=== PATIENT | female | born 1950 | race Caucasian/White ===

== ENCOUNTER 2019-10-25 12:34 | Emergency (ER) | payer BC, SELFPAY ==
[2019-10-25] VITALS (18 sets, daily range): BP systolic 150–175; BP diastolic 67–76; PULSE 56–80; RESP 14–22; O2SAT 97–100
--- NOTE | 2019-10-25 12:52 | DI.CT.S_ITS ---
PROCEDURE: CT HEAD/BRAIN WO CON INDICATIONS: lightheaded, dizzy TECHNIQUE: Noncontrast 4.5 mm thick angled axial sections acquired from the foramen magnum to the vertex, with coronal and sagittal reformats. For radiation dose reduction, the following was used: automated exposure control, adjustment of mA and/or kV according to patient size. COMPARISON: None. FINDINGS: Image quality: Excellent. CSF spaces: Basal cisterns are patent. No extra-axial fluid collections. The ventricles are symmetric in size and shape. Brain: No intracranial bleeds or masses. There is cerebral volume loss for age, with resultant ventricular and sulcal prominence. There are periventricular and deep white matter chronic small vessel ischemic changes. There is intracranial internal carotid artery atherosclerosis. Skull and face: Calvarium and visualized facial bones appear intact, without suspicious lesions. Sinuses: Visualized sinuses and mastoids are clear. IMPRESSION: No acute intracranial abnormality. Dictated by: Susan Laws M.D. on 10/25/2019 at 12:20 Approved by: Susan Laws M.D. on 10/25/2019 at 12:21
--- NOTE | 2019-10-25 13:07 | DI.RAD.S_ITS ---
PROCEDURE: XR ACUTE ABDOMEN SERIES INDICATIONS: nausea TECHNIQUE: One view chest and two views of the abdomen were acquired. COMPARISON: None. FINDINGS: Surgical changes and devices: Cholecystectomy clips. Surgical clips project over the central abdomen and left upper quadrant. Chest: Lungs are clear. Heart size is normal. No pleural effusions. No pneumoperitoneum. Abdomen: Bowel gas pattern is normal. No suspicious calcifications. Visualized solid organ contours appear normal. Bones: No suspicious bony lesions. IMPRESSION: No acute process. Dictated by: Susan Laws M.D. on 10/25/2019 at 12:36 Approved by: Susan Laws M.D. on 10/25/2019 at 12:37
[2019-10-25 13:10] LABS: Add Manual Diff / Slide Review NO; Basophils Absolute Auto 100 /uL (0-100); Basophils Percent Auto 1.2 % (0-2); Eosinophils Absolute Auto 100 /uL (0-450); Eosinophils Percent Auto 1.7 % (2-4); Hematocrit 40.4 % (36-46); Hemoglobin 13.4 g/dL (12.0-16.0); Lymphocytes Absolute Auto 1400 /uL (1100-4500); Lymphocytes Percent Auto 24.8 % (25-40); Mean Corpuscular HGB Conc 33.2 % (30-36); Mean Corpuscular Volume 96.1 fL (80-100); Monocytes Absolute Auto 600 /uL (0-900); Monocytes Percent Auto 10.5 % (3-14); Neutrophils Absolute Auto 3400 /uL (1500-7000); Neutrophils Percent Auto 61.8 % (50-75); Platelet Count 231 X10^3/uL (150-400); Red Cell Distribution Width 13.5 % (11.6-14.8); White Blood Cell Count 5.5 X10^3/uL (4.5-11.0)
[2019-10-25 13:17] LABS: Prothrombin Time 11.6 SECONDS (10.1-12.7)
[2019-10-25 13:20] LABS: PTT Partial Thromboplastin Tim 34 SECONDS (26.4-36.2)
[2019-10-25 13:24] LABS: Alanine Aminotransferase 39 IU/L (<35); Albumin 4.3 g/dL (3.5-5.0); Albumin Globulin Ratio 1.7 (1.0-2.8); Alkaline Phosphatase 66 U/L (38-126); Aspartate Aminotransferase 36 IU/L (14-36); BUN Creatinine Ratio 32.3 (6-22); Bilirubin Total 0.4 mg/dL (0.2-1.3); Blood Urea Nitrogen 21 mg/dL (7-17); Carbon Dioxide 26 mmol/L (22-32); Chloride 104 mmol/L (98-107); Creatine Kinase 46 U/L (30-135); Estimated Glomerular Filt Rate > 60.0 mL/min (>60); Ethanol (ETOH) < 10 mg/dL; Globulin 2.6 g/dL (1.7-4.1); Glucose 131 mg/dL (80-110); HEMOLYSIS < 15 (0-50); Magnesium 1.7 mg/dL (1.6-2.3); Potassium 4.3 mmol/L (3.4-5.1); Sodium 134 mmol/L (137-145); Total Protein 6.9 g/dL (6.3-8.2)
[2019-10-25] MEDS: ONDANSETRON 4 MG/2 ML INJ IV (13:25)
[2019-10-25] MEDS: SODIUM CHLORIDE 0.9% 1,000 ML 1000 ML IV ×2 (13:25→14:44)
--- NOTE | 2019-10-25 13:26 | PC.NURSE ---
Pts told us that lately she has been more forgetful.
[2019-10-25 13:36] LABS: NT-proBNP (BNP-Adult 18+) 116 pg/mL (<125); Troponin I < 0.012 ng/mL (0.01-0.034)
--- NOTE | 2019-10-25 13:44 | ED.NEUROSD ---
HPI - Neuro Symptoms/Deficit <BANDAR Faulkner - Last Filed: 10/25/19 20:56> General Chief Complaint: Neuro Symptoms/Deficit Stated Complaint: Woozy/ Nausea Time Seen by Provider: 10/25/19 12:43 Source: patient Mode of arrival: Ambulatory Limitations: no limitations History of Present Illness HPI Narrative: The patient is a 69-year-old female former smoker with history of gastric sleeve and cholecystectomy who presents with her for chief complaint of feeling woozy since she woke up this morning. She feels generally very woozy, like she is ?going to fall over. She denies any spinning sensations. She denies any chest pain or shortness of breath. She complains of nausea, no vomiting. She states she has never felt this way before, was concerned about her blood sugar being off. She denies any abdominal pain. She denies any blurred vision, visual changes slurred speech or confusion. Her notes that she has been having memory issues for several months at this point. She does note that she had a few good cocktails last night, denies any urinary symptoms such as dysuria urgency or frequency. [place] he is mountain biking and they are camping. She denies any palpitations, swelling of her extremities. On Anticoagulants: No Related Data Previous Rx's Medication Instructions Recorded meclizine 25 mg PO TID PRN #20 tab 10/25/19 Allergies Allergy/AdvReac Type Severity Reaction Status Date / Time latex Allergy Mild Redness of Verified 10/25/19 12:46 Skin adhesive AdvReac Intermediate Redness of Verified 10/25/19 12:46 Skin Review of Systems <BANDAR Faulkner - Last Filed: 10/25/19 20:56> Review of Systems Narrative: GENERAL: See HPI HEENT: Denies sinus pain, ear pain, sore throat, difficulty swallowing, dizziness. RESPIRATORY: Denies dyspnea, cough, wheezing, hemoptysis, sputum. CARDIOVASCULAR: See HPI GASTROINTESTINAL: Denies nausea, vomiting, abdominal pain, diarrhea, constipation, melena. : Denies dysuria, frequency, incontinence, hematuria, urinary retention. MUSCULOSKELETAL: denies weakness, joint pain, or bony pain SKIN: Denies rash, skin lesions, or other NEUROLOGIC: See HPI PSYCHIATRIC: No concerning psychosocial issues. 12 point review of systems is negative except for those stated above Patient History <SERJIO Faulkner - Last Filed: 10/25/19 20:56> Social History Smoking Status: Former smoker Smoking Status: Former smoker alcohol intake frequency: 0-2 drinks per day Substance Use Type: does not use Exam <SERJIO Faulkner - Last Filed: 10/25/19 20:56> Narrative Exam Narrative: GENERAL: This is a well-nourished, well-developed patient, in no acute distress HEAD: Atraumatic. Normocephalic. No temporal or scalp tenderness. EYES: Pupils equal round and reactive. Extraocular motions intact. No scleral icterus. No injection or drainage. ENT: Nose without bleeding, purulent drainage or septal hematoma. Throat without erythema, tonsillar hypertrophy or exudate. Uvula midline. Airway patent. Bilateral TMs pearly robles. NECK: Trachea midline. No JVD or lymphadenopathy. Supple, nontender, no meningeal signs. CARDIOVASCULAR: Regular rate and rhythm RESPIRATORY: Clear to auscultation. Breath sounds equal bilaterally. No wheezes, rales, or rhonchi. No cough. No increased respiratory effort. No accessory muscle use. GASTROINTESTINAL: Abdomen soft, non-tender, nondistended. No hepato-splenomegaly, or palpable masses. No guarding. EXTREMITIES: No clubbing, cyanosis, or edema. No joint tenderness, effusion, or edema noted. BACK: Nontender without deformity or crepitance. No flank tenderness. NEURO: AOx3. Steady gait. NIH of 0. No ataxia. Strength is equal upper and lower extremities bilaterally. SKIN: No rash or erythema. Initial Vital Signs Initial Vital Signs: Vital Signs Pulse Rate 70 10/25/19 12:41 Respiratory Rate 14 10/25/19 12:41 Blood Pressure 150/68 H 10/25/19 12:41 Pulse Oximetry 100 10/25/19 12:41 <Curtis Avila MD - Last Filed: 10/31/19 07:21> Initial Vital Signs Initial Vital Signs: Vital Signs Pulse Rate 70 10/25/19 12:41 Respiratory Rate 14 10/25/19 12:41 Blood Pressure 150/68 H 10/25/19 12:41 Pulse Oximetry 100 10/25/19 12:41 Scores <BANDAR Faulkner - Last Filed: 10/25/19 20:56> GCS [place] coma scale eye opening: Spontaneous [place] coma scale verbal response: Orientated [place] coma scale motor response: [place] commands [place] coma scale total score: 15 NIH Stroke Scale Level of Conciousness: Alert, keenly responsive Ask month/age: Answers both questions correctly. Open/close eyes, close hand: Performs both tasks correctly Best gaze horizontal: Normal Visual jiang: No visual loss Facial palsy: Normal symetrical movement Left arm drift: No drift for full 10 sec Right arm drift: No drift for full 10 sec Left leg drift: No drift for full 10 sec Right leg drift: No drift for full 10 sec Limb ataxia: Absent Sensory on face/arms/legs: Normal, no sensory loss Best language: No aphasia, normal Dysarthria: Normal Extinction or inattention: No abnormality Total NIH Stroke scale score: 0 Course <BRYANT Faulkner- - Last Filed: 10/25/19 20:56> Orders Ordered: Discontinued Medications Sodium Chloride (Normal Saline 0.9%) 1,000 mls @ 1,000 mls/hr IV BOLUS PRN PRN Reason: Fluid replacement Last Infusion: 10/25/19 14:34 Dose: 0 mls/hr Documented by: Admin: 10/25/19 13:25 Dose: 1,000 mls/hr Documented by: REYMUNDO Sodium Chloride (Normal Saline 0.9%) 1,000 mls @ 1,000 mls/hr IV BOLUS ONE Stop: 10/25/19 15:35 Last Infusion: 10/25/19 16:43 Dose: 0 mls/hr Documented by: Admin: 10/25/19 14:44 Dose: 1,000 mls/hr Documented by: REYMUNDO Meclizine HCl (Antivert) 50 mg PO NOW ONE Stop: 10/25/19 16:23 Last Admin: 10/25/19 16:40 Dose: 50 mg Documented by: JERSON Ondansetron HCl (Zofran) 4 mg IV NOW ONE Stop: 10/25/19 12:53 Last Admin: 10/25/19 13:25 Dose: 4 mg Documented by: REYMUNDO Vital Signs Vital signs: Vital Signs - 8 hr 10/25/19 14:04 10/25/19 14:30 10/25/19 14:31 Pulse Rate 58 L 57 L 58 L Pulse Rate [Orthostatic Lying] Pulse Rate [Orthostatic Sitting] Pulse Rate [Orthostatic Standing] Respiratory Rate 20 20 18 Blood Pressure 159/71 H Blood Pressure [Orthostatic Lying] Blood Pressure [Orthostatic Sitting] Blood Pressure [Orthostatic Standing] Pulse Oximetry 99 100 99 10/25/19 15:19 10/25/19 15:30 10/25/19 16:00 Pulse Rate 80 63 58 L Pulse Rate [Orthostatic Lying] Pulse Rate [Orthostatic Sitting] Pulse Rate [Orthostatic Standing] Respiratory Rate 17 16 Blood Pressure Blood Pressure [Orthostatic Lying] Blood Pressure [Orthostatic Sitting] Blood Pressure [Orthostatic Standing] Pulse Oximetry 99 100 10/25/19 16:01 10/25/19 16:03 10/25/19 16:05 Pulse Rate 58 L 61 65 Pulse Rate [Orthostatic Lying] Pulse Rate [Orthostatic Sitting] Pulse Rate [Orthostatic Standing] Respiratory Rate 21 19 16 Blood Pressure 155/69 H 168/67 H 175/76 H Blood Pressure [Orthostatic Lying] Blood Pressure [Orthostatic Sitting] Blood Pressure [Orthostatic Standing] Pulse Oximetry 100 100 100 10/25/19 16:07 10/25/19 16:30 10/25/19 17:00 Pulse Rate 60 62 Pulse Rate [Orthostatic Lying] 58 L Pulse Rate [Orthostatic Sitting] 60 Pulse Rate [Orthostatic Standing] 64 Respiratory Rate 19 22 Blood Pressure Blood Pressure [Orthostatic Lying] 155/69 H Blood Pressure [Orthostatic Sitting] 168/67 H Blood Pressure [Orthostatic Standing] 175/76 H Pulse Oximetry 98 100 10/25/19 17:13 10/25/19 17:30 10/25/19 17:31 Pulse Rate 67 58 L 56 L Pulse Rate [Orthostatic Lying] Pulse Rate [Orthostatic Sitting] Pulse Rate [Orthostatic Standing] Respiratory Rate 16 14 18 Blood Pressure 169/72 H 168/72 H Blood Pressure [Orthostatic Lying] Blood Pressure [Orthostatic Sitting] Blood Pressure [Orthostatic Standing] Pulse Oximetry 98 99 99 10/25/19 18:00 10/25/19 18:30 Pulse Rate 62 57 L Pulse Rate [Orthostatic Lying] Pulse Rate [Orthostatic Sitting] Pulse Rate [Orthostatic Standing] Respiratory Rate 15 17 Blood Pressure 160/70 H 165/70 H Blood Pressure [Orthostatic Lying] Blood Pressure [Orthostatic Sitting] Blood Pressure [Orthostatic Standing] Pulse Oximetry 97 99 <Curtis Avila MD - Last Filed: 10/31/19 07:21> Orders Ordered: Discontinued Medications Sodium Chloride (Normal Saline 0.9%) 1,000 mls @ 1,000 mls/hr IV BOLUS PRN PRN Reason: Fluid replacement Last Infusion: 10/25/19 14:34 Dose: 0 mls/hr Documented by: Admin: 10/25/19 13:25 Dose: 1,000 mls/hr Documented by: REYMUNDO Sodium Chloride (Normal Saline 0.9%) 1,000 mls @ 1,000 mls/hr IV BOLUS ONE Stop: 10/25/19 15:35 Last Infusion: 10/25/19 16:43 Dose: 0 mls/hr Documented by: Admin: 10/25/19 14:44 Dose: 1,000 mls/hr Documented by: REYMUNDO Meclizine HCl (Antivert) 50 mg PO NOW ONE Stop: 10/25/19 16:23 Last Admin: 10/25/19 16:40 Dose: 50 mg Documented by: JERSON Ondansetron HCl (Zofran) 4 mg IV NOW ONE Stop: 10/25/19 12:53 Last Admin: 10/25/19 13:25 Dose: 4 mg Documented by: REYMUNDO Vital Signs Vital signs: Vital Signs - 8 hr 10/25/19 14:04 10/25/19 14:30 10/25/19 14:31 Pulse Rate 58 L 57 L 58 L Pulse Rate [Orthostatic Lying] Pulse Rate [Orthostatic Sitting] Pulse Rate [Orthostatic Standing] Respiratory Rate 20 20 18 Blood Pressure 159/71 H Blood Pressure [Orthostatic Lying] Blood Pressure [Orthostatic Sitting] Blood Pressure [Orthostatic Standing] Pulse Oximetry 99 100 99 10/25/19 15:19 10/25/19 15:30 10/25/19 16:00 Pulse Rate 80 63 58 L Pulse Rate [Orthostatic Lying] Pulse Rate [Orthostatic Sitting] Pulse Rate [Orthostatic Standing] Respiratory Rate 17 16 Blood Pressure Blood Pressure [Orthostatic Lying] Blood Pressure [Orthostatic Sitting] Blood Pressure [Orthostatic Standing] Pulse Oximetry 99 100 07/26/20 16:01 10/25/19 16:03 10/25/19 16:05 Pulse Rate 58 L 61 65 Pulse Rate [Orthostatic Lying] Pulse Rate [Orthostatic Sitting] Pulse Rate [Orthostatic Standing] Respiratory Rate 21 19 16 Blood Pressure 155/69 H 168/67 H 175/76 H Blood Pressure [Orthostatic Lying] Blood Pressure [Orthostatic Sitting] Blood Pressure [Orthostatic Standing] Pulse Oximetry 100 100 100 10/25/19 16:07 10/25/19 16:30 10/25/19 17:00 Pulse Rate 60 62 Pulse Rate [Orthostatic Lying] 58 L Pulse Rate [Orthostatic Sitting] 60 Pulse Rate [Orthostatic Standing] 64 Respiratory Rate 19 22 Blood Pressure Blood Pressure [Orthostatic Lying] 155/69 H Blood Pressure [Orthostatic Sitting] 168/67 H Blood Pressure [Orthostatic Standing] 175/76 H Pulse Oximetry 98 100 10/25/19 17:13 10/25/19 17:30 10/25/19 17:31 Pulse Rate 67 58 L 56 L Pulse Rate [Orthostatic Lying] Pulse Rate [Orthostatic Sitting] Pulse Rate [Orthostatic Standing] Respiratory Rate 16 14 18 Blood Pressure 169/72 H 168/72 H Blood Pressure [Orthostatic Lying] Blood Pressure [Orthostatic Sitting] Blood Pressure [Orthostatic Standing] Pulse Oximetry 98 99 99 10/25/19 18:00 10/25/19 18:30 Pulse Rate 62 57 L Pulse Rate [Orthostatic Lying] Pulse Rate [Orthostatic Sitting] Pulse Rate [Orthostatic Standing] Respiratory Rate 15 17 Blood Pressure 160/70 H 165/70 H Blood Pressure [Orthostatic Lying] Blood Pressure [Orthostatic Sitting] Blood Pressure [Orthostatic Standing] Pulse Oximetry 97 99 MDM - Neuro Symptoms/Deficit <BRYANT aFulkner-BC - Last Filed: 10/25/19 20:56> Lab Data Attestation: I reviewed the patient's lab results. Result diagrams: 10/25/19 12:54 10/25/19 12:54 Labs: Lab Results 10/25/19 10/25/19 10/25/19 Range/Units 12:54 12:54 12:54 WBC 5.5 (4.5-11.0) X10^3/uL RBC 4.20 (4.0-5.2) X10^6/uL Hgb 13.4 (12.0-16.0) g/dL Hct 40.4 (36-46) % MCV 96.1 (80-100) fL MCH 32.0 (26-34) PG MCHC 33.2 (30-36) % RDW 13.5 (11.6-14.8) % Plt Count 231 (150-400) X10^3/uL Neut % (Auto) 61.8 (50-75) % Lymph % (Auto) 24.8 L (25-40) % [place] % (Auto) 10.5 (3-14) % Eos % (Auto) 1.7 L (2-4) % Baso % (Auto) 1.2 (0-2) % Neut # (Auto) 3400 (8248-5309) /uL Lymph # (Auto) 1400 (9161-8619) /uL [place] # (Auto) 600 (0-900) /uL Eos # (Auto) 100 (0-450) /uL Baso # (Auto) 100 (0-100) /uL PT 11.6 (10.1-12.7) SECONDS INR 1.0 (0.9-1.3) APTT 34 (26.4-36.2) SECONDS Sodium 134 L (137-145) mmol/L Potassium 4.3 (3.4-5.1) mmol/L Chloride 104 (98-107) mmol/L Carbon Dioxide 26 (22-32) mmol/L BUN 21 H (7-17) mg/dL Creatinine 0.65 (0.52-1.04) mg/dL Estimated GFR > 60.0 (>60) mL/min BUN/Creatinine Ratio 32.3 H (6-22) Glucose 131 H (80-110) mg/dL Calcium 10.0 (8.4-10.2) mg/dL Magnesium (1.6-2.3) mg/dL Total Bilirubin 0.4 (0.2-1.3) mg/dL AST 36 (14-36) IU/L ALT 39 H (<35) IU/L Alkaline Phosphatase 66 (38-126) U/L Total Creatine Kinase 46 (30-135) U/L CK-MB (CK-2) TNP CK-MB (CK-2) Rel Index TNP Troponin I < 0.012 (0.01-0.034) ng/mL NT-Pro-B Natriuret Pep 116 (<125) pg/mL Total Protein 6.9 (6.3-8.2) g/dL Albumin 4.3 (3.5-5.0) g/dL Globulin 2.6 (1.7-4.1) g/dL Albumin/Globulin Ratio 1.7 (1.0-2.8) Ethyl Alcohol < 10 ( - 10) mg/dL 10/25/19 10/25/19 Range/Units 12:54 17:05 WBC (4.5-11.0) X10^3/uL RBC (4.0-5.2) X10^6/uL Hgb (12.0-16.0) g/dL Hct (36-46) % MCV (80-100) fL MCH (26-34) PG MCHC (30-36) % RDW (11.6-14.8) % Plt Count (150-400) X10^3/uL Neut % (Auto) (50-75) % Lymph % (Auto) (25-40) % [place] % (Auto) (3-14) % Eos % (Auto) (2-4) % Baso % (Auto) (0-2) % Neut # (Auto) (0545-4484) /uL Lymph # (Auto) (7809-4695) /uL [place] # (Auto) (0-900) /uL Eos # (Auto) (0-450) /uL Baso # (Auto) (0-100) /uL PT (10.1-12.7) SECONDS INR (0.9-1.3) APTT (26.4-36.2) SECONDS Sodium (137-145) mmol/L Potassium (3.4-5.1) mmol/L Chloride (98-107) mmol/L Carbon Dioxide (22-32) mmol/L BUN (7-17) mg/dL Creatinine (0.52-1.04) mg/dL Estimated GFR (>60) mL/min BUN/Creatinine Ratio (6-22) Glucose (80-110) mg/dL Calcium (8.4-10.2) mg/dL Magnesium 1.7 (1.6-2.3) mg/dL Total Bilirubin (0.2-1.3) mg/dL AST (14-36) IU/L ALT (<35) IU/L Alkaline Phosphatase (38-126) U/L Total Creatine Kinase 43 (30-135) U/L CK-MB (CK-2) TNP CK-MB (CK-2) Rel Index TNP Troponin I < 0.012 (0.01-0.034) ng/mL NT-Pro-B Natriuret Pep (<125) pg/mL Total Protein (6.3-8.2) g/dL Albumin (3.5-5.0) g/dL Globulin (1.7-4.1) g/dL Albumin/Globulin Ratio (1.0-2.8) Ethyl Alcohol ( - 10) mg/dL Point of Care Testing Glucose POC 129 Urine Dip Bedside Urine Glucose Negative Bedside Urine Bilirubin - Negative Bedside Urine Ketone - Negative Urine Specific [place] 1.010 Bedside Urine Occult Blood - Negative Bedside Urine pH 6.0 Bedside Urine Protein - Negative Bedside Urine Urobilinogen - Negative Bedside Urine Nitrite - Negative Bedside Urine Leukocytes - Negative Esterase Imaging Data Abdominal x-ray: Radiologist's Impression: [address] [place] [id number] XRay Report Signed Patient: Taryn Hansen [facility]#: [id number] : [id number]:[id number] Age/Sex: 69 / FDate of Service: 10/25/19 Loc: ED Accession Number: [id number] Procedure: XR acute abdomen series Ordering Provider: Naila Davis PROCEDURE: XR ACUTE ABDOMEN SERIES INDICATIONS: nausea TECHNIQUE: One view chest and two views of the abdomen were acquired. COMPARISON: None. FINDINGS: Surgical changes and devices: Cholecystectomy clips. Surgical clips project over the central abdomen and left upper quadrant. Chest: Lungs are clear. Heart size is normal. No pleural effusions. No pneumoperitoneum. Abdomen: Bowel gas pattern is normal. No suspicious calcifications. Visualized solid organ contours appear normal. Bones: No suspicious bony lesions. IMPRESSION: No acute process. Dictated by: Susan Laws M.D. on 10/25/2019 at 12:36 Approved by: Susan Laws M.D. on 10/25/2019 at 12:37 CT scan - head: Radiologist's Impression: [address] [place] [id number] Scan Report Signed Patient: Taryn Hansen [facility]#: [id number] : [id number] Age/Sex: 69 / FDate of Service: 10/25/19 Loc: ED Accession Number: [id number] Procedure: CT head/brain wo con Ordering Provider: Naila Davis PROCEDURE: CT HEAD/BRAIN WO CON INDICATIONS: lightheaded, dizzy TECHNIQUE: Noncontrast 4.5 mm thick angled axial sections acquired from the foramen magnum to the vertex, with coronal and sagittal reformats. For radiation dose reduction, the following was used: automated exposure control, adjustment of mA and/or kV according to patient size. COMPARISON: None. FINDINGS: Image quality: Excellent. CSF spaces: Basal cisterns are patent. No extra-axial fluid collections. The ventricles are symmetric in size and shape. Brain: No intracranial bleeds or masses. There is cerebral volume loss for age, with resultant ventricular and sulcal prominence. There are periventricular and deep white matter chronic small vessel ischemic changes. There is intracranial internal carotid artery atherosclerosis. Skull and face: Calvarium and visualized facial bones appear intact, without suspicious lesions. Sinuses: Visualized sinuses and mastoids are clear. IMPRESSION: No acute intracranial abnormality. Dictated by: Susan Laws M.D. on 10/25/2019 at 12:20 Approved by: Susan Laws M.D. on 10/25/2019 at 12:21 CTA - brain/neck: Radiologist's Impression: [address] [place] [id number] Scan Report Signed Patient: Taryn Hansen [facility]#: [id number] [id number] Age/Sex: 69 / FDate of Service: 10/25/19 Loc: ED Accession Number: [id number] Procedure: CT angio head and neck Ordering Provider: Naila Davis PROCEDURE: CT ANGIO HEAD AND NECK INDICATIONS: dizziness TECHNIQUE: Pre-contrast 4.5 mm thick sections acquired from the foramen magnum to the vertex. After the administration of intravenous contrast, 1 mm thick sections acquired from the aortic arch through the [place]. Post-contrast 4.5 mm thick sections then re-acquired from the foramen magnum to the vertex. 3-dimensional [id number] (MIP) and/or volume rendering reformats were acquired of the central intracranial vasculature and neck separately. COMPARISON: None. FINDINGS: Image quality: Excellent. BRAIN: CSF spaces: Ventricles are normal in size and shape. Basal cisterns are patent. No extra-axial fluid collections. Brain: No midline shift. No intracranial bleeds or masses. [place]-white matter interface appears intact. Skull and face: Calvarium and facial bones appear intact, without suspicious lesions. Orbits appear normal. Sinuses: Sinuses and mastoids are clear. HEAD CT ANGIOGRAPHY: Anterior circulation: Intracranial internal carotid arteries are normal in size and flow. The flow within the paired anterior cerebral arteries is normal and symmetric. The flow within the middle cerebral arteries is normal and symmetric. The anterior communicating artery is seen. No aneurysms are seen. Posterior circulation: Visualized portions of the vertebral arteries demonstrate normal caliber, and join to form a normal appearing basilar artery. Near origins of the bilateral posterior cerebral arteries. Flow within the posterior cerebral arteries is normal and symmetric. No aneurysms are seen. NECK CT ANGIOGRAPHY: Carotid system: The great vessels demonstrate a conventional anatomy as they arise from the aortic arch. The origins of the common carotid arteries appear patent. The common carotid arteries demonstrate normal caliber and courses. The bifurcation regions are both widely patent. The internal carotid arteries demonstrate normal calibers and courses. Posterior circulation: The origins of the vertebral arteries both appear widely patent. The more superior extracranial portions of both vertebral arteries also demonstrate normal courses and calibers. They join to form a normal appearing basilar artery. Soft tissues: Visualized neck soft tissues demonstrate no suspicious abnormalities. Bones: No suspicious bony lesions. Visualized cervical spine appears normally aligned. IMPRESSION: No explanation for dizziness. Any quantitative measurements of stenosis were performed using NASCET criteria. Dictated by: Susan Laws M.D. on 10/25/2019 at 14:34 Approved by: Susan Laws M.D. on 10/25/2019 at 14:36 ECG Data Attestation: I personally reviewed and interpreted this ECG as follows: Prior ECG tracings: not available for review Interpretation: Normal sinus rhythm. Ventricular rate 66. P.r. interval 156. Viewed by Dr Austin CONNER Narrative Medical decision making narrative: The patient is a 69-year-old female who presents with a chief complaint of wooziness, lightheadedness. She has an NIH is 0, normal head CT, though had persistent symptoms so I get a CTA which came back negative. Her initial troponin was negative, her EKG and no acute findings. Her repeat troponin was also negative. She is overall hemodynamically stable, receiving IV fluids, her electrolytes are within normal limits. Her urine has no signs of infection. The patient felt improved after a dose of meclizine and was requesting to go home, I gave her prescription of meclizine. Encouraged her to follow up with primary care provider in the next 48-72 hours. She does describe an unsteadiness, that correlates with disequilibrium or vertigo. I discussed at length the importance of coming back to the emergency department for any acute concerns such as chest pain, shortness of breath, concern of heart attack or stroke. The patient is steady on her feet throughout her stay in the emergency department, ambulating with steady gait. Her NIH remains 0. Patient has no questions or concerns upon discharge and states understanding of return precautions as well as follow-up care. <Curtis Avila MD - Last Filed: 10/31/19 07:21> Lab Data Labs: Lab Results 10/25/19 10/25/19 10/25/19 Range/Units 12:54 12:54 12:54 WBC 5.5 (4.5-11.0) X10^3/uL RBC 4.20 (4.0-5.2) X10^6/uL Hgb 13.4 (12.0-16.0) g/dL Hct 40.4 (36-46) % MCV 96.1 (80-100) fL MCH 32.0 (26-34) PG MCHC 33.2 (30-36) % RDW 13.5 (11.6-14.8) % Plt Count 231 (150-400) X10^3/uL Neut % (Auto) 61.8 (50-75) % Lymph % (Auto) 24.8 L (25-40) % [place] % (Auto) 10.5 (3-14) % Eos % (Auto) 1.7 L (2-4) % Baso % (Auto) 1.2 (0-2) % Neut # (Auto) 3400 (9924-6013) /uL Lymph # (Auto) 1400 (4610-1354) /uL [place] # (Auto) 600 (0-900) /uL Eos # (Auto) 100 (0-450) /uL Baso # (Auto) 100 (0-100) /uL PT 11.6 (10.1-12.7) SECONDS INR 1.0 (0.9-1.3) APTT 34 (26.4-36.2) SECONDS Sodium 134 L (137-145) mmol/L Potassium 4.3 (3.4-5.1) mmol/L Chloride 104 (98-107) mmol/L Carbon Dioxide 26 (22-32) mmol/L BUN 21 H (7-17) mg/dL Creatinine 0.65 (0.52-1.04) mg/dL Estimated GFR > 60.0 (>60) mL/min BUN/Creatinine Ratio 32.3 H (6-22) Glucose 131 H (80-110) mg/dL Calcium 10.0 (8.4-10.2) mg/dL Magnesium (1.6-2.3) mg/dL Total Bilirubin 0.4 (0.2-1.3) mg/dL AST 36 (14-36) IU/L ALT 39 H (<35) IU/L Alkaline Phosphatase 66 (38-126) U/L Total Creatine Kinase 46 (30-135) U/L CK-MB (CK-2) TNP CK-MB (CK-2) Rel Index TNP Troponin I < 0.012 (0.01-0.034) ng/mL NT-Pro-B Natriuret Pep 116 (<125) pg/mL Total Protein 6.9 (6.3-8.2) g/dL Albumin 4.3 (3.5-5.0) g/dL Globulin 2.6 (1.7-4.1) g/dL Albumin/Globulin Ratio 1.7 (1.0-2.8) Ethyl Alcohol < 10 ( - 10) mg/dL 10/25/19 10/25/19 Range/Units 12:54 17:05 WBC (4.5-11.0) X10^3/uL RBC (4.0-5.2) X10^6/uL Hgb (12.0-16.0) g/dL Hct (36-46) % MCV (80-100) fL MCH (26-34) PG MCHC (30-36) % RDW (11.6-14.8) % Plt Count (150-400) X10^3/uL Neut % (Auto) (50-75) % Lymph % (Auto) (25-40) % [place] % (Auto) (3-14) % Eos % (Auto) (2-4) % Baso % (Auto) (0-2) % Neut # (Auto) (0997-0645) /uL Lymph # (Auto) (7041-3210) /uL [place] # (Auto) (0-900) /uL Eos # (Auto) (0-450) /uL Baso # (Auto) (0-100) /uL PT (10.1-12.7) SECONDS INR (0.9-1.3) APTT (26.4-36.2) SECONDS Sodium (137-145) mmol/L Potassium (3.4-5.1) mmol/L Chloride (98-107) mmol/L Carbon Dioxide (22-32) mmol/L BUN (7-17) mg/dL Creatinine (0.52-1.04) mg/dL Estimated GFR (>60) mL/min BUN/Creatinine Ratio (6-22) Glucose (80-110) mg/dL Calcium (8.4-10.2) mg/dL Magnesium 1.7 (1.6-2.3) mg/dL Total Bilirubin (0.2-1.3) mg/dL AST (14-36) IU/L ALT (<35) IU/L Alkaline Phosphatase (38-126) U/L Total Creatine Kinase 43 (30-135) U/L CK-MB (CK-2) TNP CK-MB (CK-2) Rel Index TNP Troponin I < 0.012 (0.01-0.034) ng/mL NT-Pro-B Natriuret Pep (<125) pg/mL Total Protein (6.3-8.2) g/dL Albumin (3.5-5.0) g/dL Globulin (1.7-4.1) g/dL Albumin/Globulin Ratio (1.0-2.8) Ethyl Alcohol ( - 10) mg/dL Point of Care Testing Glucose POC 129 Urine Dip Bedside Urine Glucose Negative Bedside Urine Bilirubin - Negative Bedside Urine Ketone - Negative Urine Specific [place] 1.010 Bedside Urine Occult Blood - Negative Bedside Urine pH 6.0 Bedside Urine Protein - Negative Bedside Urine Urobilinogen - Negative Bedside Urine Nitrite - Negative Bedside Urine Leukocytes - Negative Esterase Discharge Plan Departure Patient Disposition: Home Clinical Impression: Vertigo Discharge Date/Time: 10/25/19 18:43 Instructions: DI for Vertigo, DI for Dizziness-Nonvertigo Activity Restrictions/Additional Instructions: Thank you for trusting us with your care today. As discussed, please follow up with your primary care provider in next 48-72 hours Today we did a lot of blood work, chest x-ray head CT, CT angiogram of your head and neck and everything came back well. I sent a prescription of meclizine it to [facility] Please come back to the emergency department for any acute concerns. This includes signs of heart attack, stroke, inability keep down fluids, severe vomiting etcetera Please rest and push fluids. As discussed, please follow-up with PCP in the next 48-72 hours Prescriptions: New meclizine 25 mg tablet 25 mg PO TID PRN (Reason: dizziness) Qty: 20 RF: 0
--- NOTE | 2019-10-25 14:36 | DI.CT.S_ITS ---
PROCEDURE: CT ANGIO HEAD AND NECK INDICATIONS: dizziness TECHNIQUE: Pre-contrast 4.5 mm thick sections acquired from the foramen magnum to the vertex. After the administration of intravenous contrast, 1 mm thick sections acquired from the aortic arch through the [place] of [place]. Post-contrast 4.5 mm thick sections then re-acquired from the foramen magnum to the vertex. 3-dimensional [id number]-[id number]-kqdhigqzgj (MIP) and/or volume rendering reformats were acquired of the central intracranial vasculature and neck separately. COMPARISON: None. FINDINGS: Image quality: Excellent. BRAIN: CSF spaces: Ventricles are normal in size and shape. Basal cisterns are patent. No extra-axial fluid collections. Brain: No midline shift. No intracranial bleeds or masses. [place]-white matter interface appears intact. Skull and face: Calvarium and facial bones appear intact, without suspicious lesions. Orbits appear normal. Sinuses: Sinuses and mastoids are clear. HEAD CT ANGIOGRAPHY: Anterior circulation: Intracranial internal carotid arteries are normal in size and flow. The flow within the paired anterior cerebral arteries is normal and symmetric. The flow within the middle cerebral arteries is normal and symmetric. The anterior communicating artery is seen. No aneurysms are seen. Posterior circulation: Visualized portions of the vertebral arteries demonstrate normal caliber, and join to form a normal appearing basilar artery. Near origins of the bilateral posterior cerebral arteries. Flow within the posterior cerebral arteries is normal and symmetric. No aneurysms are seen. NECK CT ANGIOGRAPHY: Carotid system: The great vessels demonstrate a conventional anatomy as they arise from the aortic arch. The origins of the common carotid arteries appear patent. The common carotid arteries demonstrate normal caliber and courses. The bifurcation regions are both widely patent. The internal carotid arteries demonstrate normal calibers and courses. Posterior circulation: The origins of the vertebral arteries both appear widely patent. The more superior extracranial portions of both vertebral arteries also demonstrate normal courses and calibers. They join to form a normal appearing basilar artery. Soft tissues: Visualized neck soft tissues demonstrate no suspicious abnormalities. Bones: No suspicious bony lesions. Visualized cervical spine appears normally aligned. IMPRESSION: No explanation for dizziness. Any quantitative measurements of stenosis were performed using NASCET criteria. Dictated by: Susan Laws M.D. on 10/25/2019 at 14:34 Approved by: Susan Laws M.D. on 10/25/2019 at 14:36
[2019-10-25] MEDS: MECLIZINE HCL 12.5 MG TABLET 50 MG PO (16:40)
[2019-10-25 17:48] LABS: Creatine Kinase 43 U/L (30-135)
[2019-10-25 18:01] LABS: Troponin I < 0.012 ng/mL (0.01-0.034)
== END 2019-10-25 18:43 | disposition home or self-care (01) ==
PROVIDERS: Emergency Provider Nurse Practitioner Family
DX: R42 Dizziness and giddiness (principal); R11.0 Nausea
CPT/HCPCS: 36415; 70450; 70496; 70498; 74022; 80053; 80320; 81003; 82550; 82962; 83735; 83880; 84484; 85025; 85610; 85730; 93005; 96361; 96374; 99284; 99285; J2405; Q9967